=== PATIENT | female | born 1950 | race Caucasian/White ===

== ENCOUNTER 2016-09-07 15:17 | Inpatient (IN) | payer MEDICAID ==
[~2016-09-07] VITALS: Ht 149.9 cm; Wt 90.6 kg
[~2016-09-07 15:17] MED LIST: ASPI81CH43 GT; ATEN-60 OR; CETI10CH OR; CLID5CAP OR; CLON1TAB72 OR; DICL-164 OR; ERGO1CAP6 OR; GABA300C8 OR; INSLANTI SC; INSLISPI SC; LORA-205 OR; METF-314 OR; MULT-236 OR; MULTCAP45 OR; NIFEDICAL XL; OMEP20TA44 OR; ONGLYZA PO; OXYC325T14; SAXA1TAB OR; SIMV-8 OR
[2016-09-07 16:09] LABS: Albumin 3.6 g/dL (3.4-5.0); Calcium 8.8 mg/dL (8.5-10.1); Potassium 3.7 mmol/L (3.5-5.1)
[2016-09-07 16:11] LABS: BUN/Creatinine Ratio 10.3; Total Protein 7.8 g/dL (6.4-8.2)
[2016-09-07] MEDS ORDERED: SODIUM CHLORIDE 0.9% 1,000 ML IV ONE (16:24)
[2016-09-07 16:53] LABS: Basophils # (auto) 0 uL; Basophils % (auto) 0.1 % (0.0-2.0); Eosinophils # (auto) 0 uL; Eosinophils % (auto) 0.2 % (0.0-7.0); Hematocrit 46.8 % (36.0-46.0); Hemoglobin 15.4 g/dL (12.2-16.2); Lymphocytes # (auto) 2.1 uL; Lymphocytes % (auto) 10.7 % (10.0-50.0); Mean Corpuscular Hemoglobin 28.6 pg (28.0-32.0); Mean Corpuscular Volume 86.4 fL (80.0-100.0); Mean Platelet Volume 10.4 fL (7.4-10.4); Monocytes # (auto) 0.8 uL; Monocytes % (auto) 4.2 % (0.0-12.0); Neutrophils # (auto) 16.4 uL; Neutrophils % (auto) 84.8 % (37.0-80.0); Platelet Count (auto) 363 10^3/uL (140-450); White Blood Cell 19.3 10^3/uL (4.4-10.8)
[2016-09-07 19:13] LABS: Urine Bilirubin Negative (Negative); Urine Blood Negative /uL (Negative); Urine Color Yellow (Yellow); Urine Nitrite Negative (Negative); Urine RBC 2 /hpf (0 - 4); Urine Squamous Epithelial Cell FEW /hpf (<5); Urine Urobilinogen Normal (Negative)
[2016-09-07 19:17] LABS: Urine Glucose 4+ mg/dL (Normal); Urine Ketone 1+ (Negative)
[2016-09-07] MEDS ORDERED: ACETAMINOPHEN 325 MG TAB PO PRN (22:45)
[2016-09-07] MEDS ORDERED: cefTRIAXone 1GM/50ML D5W 50 ML IV ONE (22:45)
[2016-09-07] MEDS ORDERED: ONDANSETRON HCL 4 MG/2 ML VIAL IV PRN (22:45)
[2016-09-07] MEDS ORDERED: HYDROcodone-ACET 5/325MG TAB PO PRN (22:45)
[2016-09-07] MEDS ORDERED: DEXTROSE (50%) 50ML SYRG IV PRN (22:45)
[2016-09-07] MEDS ORDERED: TEMAZEPAM 15 MG CAP PO PRN (22:45)
[2016-09-07] MEDS: SODIUM CHLORIDE 0.9% 1,000 ML IV SCH (23:40)
[2016-09-08] VITALS (9 sets, daily range): BP systolic 123–154; BP diastolic 57–94
[2016-09-08] MEDS: InsuLIN REG 1unit/0.01ml Soln (100units/ml) SC SCH ×7 (00:39→23:23)
[2016-09-08] MEDS: ACCU-CHEK COMFORT CURVE STRIP VI SCH ×7 (00:39→23:23)
[2016-09-08] MEDS ORDERED: INS7030I SC (01:12)
[2016-09-08] MEDS ORDERED: METO10TA3 PO (01:12)
[2016-09-08] MEDS ORDERED: CITA-77 PO (01:12)
[2016-09-08] MEDS ORDERED: OXYB15TA12 PO (01:12)
[2016-09-08 05:47] LABS: Basophils # (auto) 0.1 uL; Basophils % (auto) 0.4 % (0.0-2.0); Eosinophils # (auto) 0.2 uL; Eosinophils % (auto) 1.3 % (0.0-7.0); Hematocrit 40.9 % (36.0-46.0); Hemoglobin 13.3 g/dL (12.2-16.2); Lymphocytes # (auto) 4.2 uL; Lymphocytes % (auto) 29.8 % (10.0-50.0); Mean Corpuscular Hemoglobin 28.5 pg (28.0-32.0); Mean Corpuscular Hgb Conc. 32.5 g/dL (32.0-36.0); Mean Corpuscular Volume 87.7 fL (80.0-100.0); Mean Platelet Volume 9.6 fL (7.4-10.4); Monocytes # (auto) 0.9 uL; Monocytes % (auto) 6.5 % (0.0-12.0); Neutrophils # (auto) 8.8 uL; Platelet Count (auto) 304 10^3/uL (140-450); White Blood Cell 14.2 10^3/uL (4.4-10.8)
[2016-09-08] MEDS: GABAPENTIN 300 MG CAP PO SCH ×3 (06:07→21:23)
[2016-09-08 06:24] LABS: Albumin 2.9 g/dL (3.4-5.0); BUN/Creatinine Ratio 14.3; Bilirubin, Total 0.8 mg/dL (0.2-1.0); Calcium 8.1 mg/dL (8.5-10.1); Total Protein 6.3 g/dL (6.4-8.2)
[2016-09-08 06:49] LABS: Potassium 2.9 mmol/L (3.5-5.1)
[2016-09-08] MEDS ORDERED: ENOXAPARIN SOD 30 MG/0.3 ML SYRINGE SC SCH (10:00)
[2016-09-08] MEDS: clonazePAM 0.5 MG TAB PO SCH ×2 (10:04→21:23)
[2016-09-08] MEDS: FAMOTIDINE 20 MG TAB PO SCH ×2 (10:04→21:23)
[2016-09-08] MEDS: NIFEdipine ER 30 MG TAB PO SCH (10:05)
[2016-09-08] MEDS: ATENOLOL 25 MG TAB PO SCH (10:05)
[2016-09-08] MEDS ORDERED: POTASSIUM CHL 20 Meq TABLET PO ONE ×2 (13:00)
[2016-09-08] MEDS: SODIUM CHLORIDE 0.9% 1,000 ML IV SCH (15:23)
[2016-09-08] MEDS ORDERED: cefTRIAXone 1GM/50ML D5W 50 ML IV SCH (21:00)
[2016-09-08] MEDS ORDERED: ATORVASTATIN 20 MG TAB PO SCH (22:00)
[2016-09-09] MEDS: ACCU-CHEK COMFORT CURVE STRIP VI SCH ×3 (04:10→12:10)
[2016-09-09] MEDS: SODIUM CHLORIDE 0.9% 1,000 ML IV SCH (04:15)
[2016-09-09] MEDS: InsuLIN REG 1unit/0.01ml Soln (100units/ml) SC SCH ×3 (04:15→12:00)
[2016-09-09 04:36] VITALS: BP 125/61
[2016-09-09] MEDS: GABAPENTIN 300 MG CAP PO SCH (05:14)
[2016-09-09 06:36] LABS: Basophils # (auto) 0 uL; Basophils % (auto) 0.4 % (0.0-2.0); Eosinophils # (auto) 0.5 uL; Eosinophils % (auto) 4.3 % (0.0-7.0); Hematocrit 40.7 % (36.0-46.0); Hemoglobin 13.4 g/dL (12.2-16.2); Lymphocytes # (auto) 3.7 uL; Lymphocytes % (auto) 34.9 % (10.0-50.0); Mean Corpuscular Hemoglobin 28.7 pg (28.0-32.0); Mean Corpuscular Hgb Conc. 32.8 g/dL (32.0-36.0); Mean Corpuscular Volume 87.5 fL (80.0-100.0); Mean Platelet Volume 9.4 fL (7.4-10.4); Monocytes # (auto) 0.7 uL; Monocytes % (auto) 6.9 % (0.0-12.0); Neutrophils # (auto) 5.7 uL; Neutrophils % (auto) 53.5 % (37.0-80.0); Platelet Count (auto) 290 10^3/uL (140-450); Red Cell Distribution Width 13.6 % (11.6-16.0); White Blood Cell 10.7 10^3/uL (4.4-10.8)
[2016-09-09 07:02] LABS: Potassium 4.2 mmol/L (3.5-5.1)
[2016-09-09 07:10] LABS: BUN/Creatinine Ratio 17.9; Calcium 8.3 mg/dL (8.5-10.1)
[2016-09-09 08:00] VITALS: BP 138/49
[2016-09-09 08:09] VITALS: BP 138/49
[2016-09-09] MEDS: clonazePAM 0.5 MG TAB PO SCH (08:39)
[2016-09-09] MEDS: ATENOLOL 25 MG TAB PO SCH (08:40)
[2016-09-09] MEDS: FAMOTIDINE 20 MG TAB PO SCH (08:40)
[2016-09-09] MEDS: NIFEdipine ER 30 MG TAB PO SCH (08:40)
[2016-09-09 11:08] VITALS: BP 138/49
== END 2016-09-09 13:29 | disposition home or self-care (01) | DRG 420 ==
LOC: ER 15:22 → OVERFLOW 15:23 → CENTRAL 15:24
PROVIDERS: ADMIT Nurse Practitioner; ATTEND Nurse Practitioner Acute Care
DX: E11.65 Type 2 diabetes mellitus with hyperglycemia (principal); E44.0 Moderate protein-calorie malnutrition; I10 Essential (primary) hypertension; E87.1 Hypo-osmolality and hyponatremia; F41.9 Anxiety disorder, unspecified; E86.0 Dehydration; E87.6 Hypokalemia; B96.89 Other specified bacterial agents as the cause of diseases classified elsewhere; J40 Bronchitis, not specified as acute or chronic; Z82.49 Family history of ischemic heart disease and other diseases of the circulatory system; Z83.3 Family history of diabetes mellitus; Z90.49 Acquired absence of other specified parts of digestive tract; Z79.899 Other long term (current) drug therapy; Z68.41 Body mass index [BMI] 40.0-44.9, adult
CPT/HCPCS: 36415; 36600; 71010; 80048; 80053; 81001; 82010; 82805; 82962; 83036; 83605; 83735; 84443; 85025; 87040; 93005; 94761; 96360; 96361; J0696; J1815